=== PATIENT | female | born 1990 | race Caucasian/White ===

== ENCOUNTER 2018-05-19 18:32 | Outpatient (REF) | payer OTHER, SELFPAY ==
[2018-05-23 14:40] LABS: Chlamydia Result Negative; GC Result Negative; Specimen Description VAGINAL
== END 2018-05-19 18:33 ==
LOC: LBN 18:32
PROVIDERS: PCP Nurse Practitioner Family; Visit Provider Nurse Practitioner Family
DX: N92.0 Excessive and frequent menstruation with regular cycle (principal); N94.6 Dysmenorrhea, unspecified
CPT/HCPCS: 87491; 87591; 87480; 87510; 87660

== ENCOUNTER 2018-06-02 01:12 | Outpatient (CLI) | payer OTHER, SELFPAY ==
--- NOTE | 2018-06-02 13:50 | DI.REPORT_ITS ---
SYMPTOMS/DIAGNOSIS: DYSMENORRHEA, MENORRHAGIA, N94.6, N92.0, COPPER IUD X 2 YEARS PELVIC ULTRASOUND: Pelvic ultrasound was performed transabdominally and transvaginally. Please see the accompanying data sheet for measurements of the pelvic structures. There is an IUD in the endometrial cavity. The myometrium is unremarkable in appearance. The ovaries have a normal follicular appearance. No free fluid identified in the cul-de-sac. Limited scanning of the kidneys is unremarkable. CONCLUSION: Negative pelvic ultrasound with IUD in place.
== END 2018-06-02 01:13 ==
PROVIDERS: PCP Nurse Practitioner Family; Visit Provider Nurse Practitioner Family
DX: N92.0 Excessive and frequent menstruation with regular cycle (principal); N94.6 Dysmenorrhea, unspecified; Z30.431 Encounter for routine checking of intrauterine contraceptive device
CPT/HCPCS: 76830; 76856

== ENCOUNTER 2024-05-21 23:05 | Emergency (ER) | payer OTHER, SELFPAY ==
[2024-05-21 23:09] VITALS: BP 127/93; PULSE 86; RESP 18; TEMP 37; O2SAT 98
--- NOTE | 2024-05-21 23:15 | RT.EKG_ITS ---
APPROVED REPORT Exam: Resting ECG Reason for Exam: syncope Patient Location: E HR:76 bpm ECG Measurements Heart Rate 76 AXIS VA 169 P 40 QRSd 97 QRS -21 QT 337 T 1 QTc 379 Conclusion Sinus rhythm...normal P axis, V-rate 60- 99 Low voltage, precordial leads...precordial leads <1.0mV Consider anterior infarct...Q >30mS in V2-V5 Normal [place] Poor R wave progression across the precordium. Nonspecific ST-T changes
--- NOTE | 2024-05-21 23:18 | ED.GENADUL_ITS ---
Discharge Plan Disposition Patient Disposition: Home Condition: Good Discharge Details Clinical Impression: UTI (urinary tract infection), Constipation, Syncope Primary Care Provider: Melida Olivas ED Provider: Jim Flores Foster Meds and New Rx's Prescriptions: Continued bupropion HCl 300 mg tablet extended release 24 hr 300 mg PO QAM cyanocobalamin (vitamin B-12) 1,000 mcg/15 mL liquid 1,000 mcg PO DAILY medroxyprogesterone [Depo-Provera] 150 mg/mL suspension 150 mg IM [id number] naproxen 500 mg tablet 500 mg PO DAILY PRN testosterone cypionate 200 mg/mL oil 100 mg IM QWEEK (DME) BD Luer-Selene Syringe 1 mL syringe MISCELLANEOUS Patient Comments: USE TO DRAW UP AND ADMINISTER MEDICATION EVERY 7 DAYS (DME) needle (disp) 23 gauge [Hypodermic [place]] 23 gauge x 1 needle MISCELLANEOUS Patient Comments: USE TO ADMINISTER MEDICATION EVERY 7 DAYS (DME) needle (disp) 18 G [BD Regular Bevel [place]] 18 gauge x 1 needle MISCELLANEOUS Patient Comments: USE 1 EVERY 7 DAYS TO DRAW UP MEDICATION cyanocobalamin (vitamin B-12) 1,000 mcg tablet 1,000 mcg PO DAILY Patient Comments: TAKE TWO TABLETS BY MOUTH EVERY MORNING propranolol 10 mg tablet 10 mg PO BID Patient Comments: TAKE 1 TABLET BY MOUTH AT BEDTIME FOR 3 NIGHTS, THEN INCREASE TO 1 TABLET TWO TIMES A DAY desvenlafaxine succinate [Pristiq] 50 mg tablet extended release 24 hr 50 mg PO DAILY lisdexamfetamine [Vyvanse] 20 mg capsule 20 mg PO DAILY lisdexamfetamine [Vyvanse] 20 mg capsule 20 mg PO DAILY norethindrone acetate 5 mg tablet 5 mg PO DAILY Discharge Instructions Instructions: Constipation, Adult ED, Urinary Tract Infection, Adult ED, Fainting, Adult ED Additional Instructions: You were seen in the ED for left lower abdominal pain. You had a syncopal event in triage likely attributable to a vagal reaction. Your laboratory studies overall are reassuring, though I would increase hydration as your kidney function was a little high. Your urine shows evidence of infection so you were given an IV dose of antibiotic here. You may discontinue the metronidazole previously prescribed for possible diverticulitis. You may continue the ciprofloxacin as this will treat the urinary tract infection. You do have evidence of constipation on CT scan but it otherwise looks reassuring. Increase fluid and fiber intake and use MiraLAX until you begin to have soft daily bowel movements. Follow-up with your primary care physician this week. Return to the ED for any spiking fever, chest pain, shortness of breath, worsening abdominal pain, persistent vomiting, other concerns. HPI General Mode of arrival: ambulatory . Date/Time Provider Initiated Documentation: 05/21/24 23:14 . Limitations to Documentation: no limitations . Information obtained by: patient . HPI Narrative: Patient presents to ED with sharp stabbing lower left abdominal pain. Patient has history of chronic cramping lower abdominal pain. Today had acute onset of different pain described as sharp and stabbing. Was seen at an urgent care and started on antibiotic for possible diverticulitis. Patient denies any fever, nausea, vomiting, diarrhea, urinary symptoms. Pain worse this evening and seems to be across the lower abdomen at this point. While in triage became pale/weinberg , diaphoretic and syncopized. Patient has recovered and is awake and alert now. Has never passed out previously. Has been having some episodes of lightheadedness throughout the late afternoon evening after the pain started. Patient is transitioning from female to male. Is planning on complete hysterectomy but that has not occurred as of this time. Denies any back pain. Denies any chest pain or shortness of breath. Related Data Home Medications ?Medication ?Instructions ?Recorded ?Confirmed bupropion HCl 300 mg 24 hr tablet, 300 mg PO QAM 11/01/23 05/22/24 extended release cyanocobalamin (vitamin B-12) 1,000 mcg PO DAILY 11/01/23 05/22/24 1,000 mcg/15 mL oral liquid medroxyprogesterone 150 mg/mL 150 mg IM [id number] 11/01/23 05/22/24 intramuscular suspension (Depo-Provera) naproxen 500 mg tablet 500 mg PO DAILY PRN 11/01/23 05/22/24 testosterone cypionate 200 mg/mL 100 mg IM QWEEK 11/01/23 05/22/24 intramuscular oil cyanocobalamin (vitamin B-12) 1,000 mcg PO DAILY 05/22/24 05/22/24 1,000 mcg tablet desvenlafaxine succinate 50 mg 50 mg PO DAILY 05/22/24 05/22/24 tablet,extended release 24 hr (Pristiq) lisdexamfetamine 20 mg capsule 20 mg PO DAILY 05/22/24 05/22/24 (Vyvanse) lisdexamfetamine 20 mg capsule 20 mg PO DAILY 05/22/24 05/22/24 (Vyvanse) needle (disp) 18 G 18 gauge x 1 05/22/24 05/22/24 (BD Regular Bevel [place]) needle (disp) 23 gauge 23 gauge x 05/22/24 05/22/24 1 (Hypodermic [place]) norethindrone acetate 5 mg tablet 5 mg PO DAILY 05/22/24 05/22/24 propranolol 10 mg tablet 10 mg PO BID 05/22/24 05/22/24 syringe (disposable) 1 mL (BD 05/22/24 05/22/24 Luer-Selene Syringe) Allergies Allergy/AdvReac Type Severity Reaction Status Date / Time No Known Allergies Allergy Unverified 11/30/23 09:09 General Stated Complaint: Abd Prob KONG: 3 Review of Systems Narrative: Per HPI Exam Narrative Exam Narrative: Const: Obese female in NAD. VS per triage. HEENT: NC/AT. Normal facial exam. Neck: Supple. Trachea midline. Lungs: Normal respiratory effort. Lungs are clear. Cor: RRR without murmur. Good radial pulses. GI: Soft/ND. Tender in the LLQ with voluntary guarding, some tenderness across lower abdomen to RLQ. Pelvic: Deferred. Neuro: A+O x 3. Normal speech, mentation, gait. Cranial nerves II - XII grossly intact. No gross motor or sensory deficit. Ext: No C/C/E. Course Vital Signs Vital signs: Vital Signs Temperature 98.6 F 05/21/24 23:09 Pulse 86 05/21/24 23:09 Respiratory Rate 18 05/21/24 23:09 Blood Pressure 127/93 H 05/21/24 23:09 Pulse Oximetry 98 05/21/24 23:09 Temperature 98.6 F 05/21/24 23:09 Temperature Source Skin 05/21/24 23:09 Pulse 86 05/21/24 23:09 Respiratory Rate 18 05/21/24 23:09 Respiratory Effort Normal 05/21/24 23:13 Blood Pressure 127/93 H 05/21/24 23:09 Blood Pressure Position Sitting 05/21/24 23:09 Pulse Oximetry 98 05/21/24 23:09 Oxygen Delivery Method Room Air 05/21/24 23:09 Oxygen Flow Rate 0 05/21/24 23:09 Pain Level 8 05/21/24 23:09 Medical Decision Making Patient presenting to ED with sudden onset of left-sided low abdominal pain described as sharp and stabbing in nature. This is different than the chronic cramping pain patient has on a fairly regular basis. Was placed on antibiotic for possible diverticulitis and did take dicyclomine. Pain worse this evening. Had syncopal event in triage. May be vagal but has never had syncope before. Given sudden onset of pain which is now worse and more diffuse possible ruptured hemorrhagic ovarian cyst considered. Patient denies . IV established and laboratory studies obtained. EKG in triage after syncopal event shows sinus rhythm with poor R wave progression nonspecific ST changes. IV acetaminophen ordered for pain. CT scan of abdomen and pelvis to be done. 03:30 - Patient doing better at this time. Looks comfortable. Labs with normal hemoglobin and hematocrit. Initial sodium reported as 126 but with normal chloride and negative anion gap. Repeat sodium normal at 137. BUN is normal. Creatinine is elevated 1.6. Liver function and lipase normal. CT scan unremarkable except for large amount of stool in the colon. No evidence of free fluid in the pelvis, hydronephrosis, ovarian cysts or kidney stones. Urinalysis is infected with large amount of white cells and bacteria present on micro. Not really complaining of back pain but presumed pyelonephritis. Will dose with IV ceftriaxone. Will discontinue the metronidazole but continue the ciprofloxacin previously prescribed today. Recommend increase fluids to hydrate. MiraLAX once or twice a day until good bowel movements. Acetaminophen or ibuprofen as needed for pain. Follow-up with primary care later this week for recheck. Return precautions provided. Lab Data Lab results reviewed: Yes I reviewed the patient's lab results. Lab results narrative: see [facility] ECG Data Attestation: I personally reviewed and interpreted this ECG (s) as follows: Prior ECG tracings: not available for review Interpretation: see EKG/[facility]M [facility] All Active Problems (Updated 05/22/24 @ 03:38 by Jim Flores MD) Syncope (Chronic) Constipation (Acute) UTI (urinary tract infection) (Acute) Transgender person on hormone therapy (Acute) 09/2022. [facility], Menses, irregular (Acute) Fibroid uterus (Acute) Obesity (Acute 10/24/13) Generalized anxiety disorder (Acute 05/19/18) Dysmenorrhea (Acute 05/19/18) Binge eating disorder (Acute 05/19/18) Medical History Asthma (10/24/13) Anxiety and depression (03/16/18) 05/03/18 DINA-7 SCORE=17 ADHD (attention deficit hyperactivity disorder), combined type (05/19/18) Surgical History Tonsillectomy and adenoidectomy (~1995) Tooth extraction 12/28-[employer] Family History Mother Depression Mental disorder learning disability Father No problems noted. Brother No problems noted. Brother Depression Asthma Brother Depression Grandfather Non-Hodgkin's lymphoma Depression Hyperlipidemia Grandfather Mental disorder OCD, social anxiety Neoplasm COLON Grandmother Depression Asthma Grandmother No problems noted. Son No problems noted. Maternal Uncle Mental disorder maternal uncle ADHD Social History Smoking/Tobacco Use Status: Former Tobacco Use Smoking risk assessment performed?: Yes Alcohol Intake: current Alcohol Intake frequency: a few times a month Drug use: Never Substance use type: marijuana Household members: other Details: Partner [place] and 8yo son Adriel. Number of Children: 1 Education Level: college current occupation: global marketing coordinator Pets and animals: Yes Pets and animals: cat(s), dog(s) and other Details: 4 SALALANDERS, BUNNY, CHICK[place] Current gender identity: trans [id number] Duration: 15-30 minutes/day Frequency: 1-2 times per week Special mayo needs: No Seatbelt use: always Female Reproductive History Menstrual Age of Menarche: 10 Duration of menses: 3-5 days History Past Pregnancies Del. Date GA/Weeks # Preg Succ Route Wgt Sex Labor Lgth Anesth esia Location [facility] 01/24/16 38 No Yes vaginal 4053.982 g [facility] Delivery Date: 01/24/16 Last Updated by: Gricelda Ryder MD (adrian)
[2024-05-22] VITALS (40 sets, daily range): BP systolic 92–134; BP diastolic 43–68; PULSE 58–81; RESP 13–27; O2SAT 92–97
--- NOTE | 2024-05-22 | DI.CT_ITS ---
Exam(s) CT ABDOMEN PELVIS W EXAM: CT ABDOMEN PELVIS W CLINICAL HISTORY: llq pain, syncope. TECHNIQUE: Imaging Protocol: Axial computed tomography images with coronal and sagittal reformatted images were created and reviewed CONTRAST MATERIAL: Intravenous: Omnipaque-350 100cc Oral: None COMPARISON: No exams were available for comparison FINDINGS: VISUALIZED LUNG BASES: No nodules nor pleural effusions evident. ABDOMEN: There is no ascites. LIVER: There are no focal hepatic lesions evident. No dilated intrahepatic ducts. GALLBLADDER/BILIARY: No obvious gallbladder pathology. CBD is not dilated. PANCREAS: No evidence of pancreatic mass nor dilatation of the pancreatic duct. SPLEEN: Spleen is not enlarged. No obvious intrasplenic lesions. Splenic and portal veins are paten t. ADRENALS: There are no significant adrenal masses. KIDNEYS:No cysts evident. No solid renal masses. No calculi nor hydronephrosis.. ABDOMINAL AORTA: Abdominal aorta is not enlarged. LYMPH NODES:There is no retroperitoneal nor paraaortic adenopathy. ABDOMINAL WALL: There is a fat only containing midline umbilical hernia. GI: There is no evidence of bowel obstruction, free air, nor abscess. There is abundant fecal material throughout the colon. No significant diverticular disease evident. There is no fecalization of small bowel loops. Terminal ileum appears unremarkable. PELVIS: GI: No evidence of appendicitis.No evidence of sigmoid diverticulitis. LYMPH NODES: There is no intrapelvic nor inguinal adenopathy. REPRODUCTIVE: Age-appropriate URINARY BLADDER: No calculi nor obvious masses evident OSSEOUS: No fractures and no significant osseous lesions. IMPRESSION: 1. There is abundant fecal material noted throughout the colon consistent with probable constipation. There is no fecalization of small bowel loops. No evidence of bowel obstruction, free air, nor abs cess 2. Fat only containing small umbilical hernia noted. RADIATION DOSE DELIVERED: Total DLP DATA REPOSITORY: All CT scans at this facility are submitted to the National Radiology Data Registry (NRDR) Dose Index Registry (DIR) with the [employer] (ACR). RADIATION OPTIMIZATION: All CT scans at this facility use at least one of these dose optimization te chniques: automated exposure control; mA and/or kV adjustment per patient size (includes targeted exa ms where dose is matched to clinical indication); or iterative reconstruction.
[2024-05-22 00:54] LABS: Abs Immature Grans 0.04 10^3/uL (0.0-0.06); Absolute Basophil Count 0.12 10^3/uL (0.0-0.2); Absolute Eosinophil Count 0.17 10^3/uL (0.0-0.7); Absolute Lymphocyte Count 3.43 10^3/uL (1.2-3.4); Absolute Monocyte Count 0.78 10^3/uL (0.1-0.8); Absolute Neutrophil Count 6.28 10^3/uL (1.2-6.7); Basophils % 1.1 %; Eosinophils % 1.6 %; HCT 41.4 % (36.0-46.0); Immature Grans % 0.4 %; Lymphocytes % 31.7 %; MCH 24.9 pg (27.0-33.0); MCHC 31.4 % (32.0-36.0); MCV 79 fL (80-95); MPV 9.7 fL (8.0-11.0); Monocytes % 7.2 %; Platelet Count 312 10^3/uL (130-400); RBC 5.22 10^6/uL (3.93-5.22); RDW 14.8 % (11.7-14.6); RDW-SD 42.8 fL; WBC 10.82 10^3/uL (4.4-10.8)
[2024-05-22] MEDS: ACETAMINOPHEN 1,000 MG/100 ML BTL 400 MG IVPB (01:01)
[2024-05-22] MEDS: Lactated Ringers 1,000 ML 1000 ML IV (01:03)
[2024-05-22 01:14] LABS: ALT 15 U/L (14-59); AST 12 U/L (15-37); Albumin 3.8 g/dL (3.4-5.0); Alkaline Phosphatase 118 U/L (46-116); Anion Gap -1.5 mmol/L (3-11); BUN 16 mg/dL (7-18); Bilirubin, Total 0.36 mg/dL (0.2-1.0); CO2 22.5 mmol/L (21.0-32.0); CREATININE 1.6 mg/dL (0.55-1.02); Calcium 9.1 mg/dL (8.5-10.1); Chloride 105 mmol/L (98-107); Estimated GFR 43.13 (mL/min/1.73m2); Glucose 110 mg/dL (74-106); Lipase 21 U/L (16-77); Potassium 3.8 mmol/L (3.5-5.1); Sodium 126 mmol/L (136-145)
[2024-05-22 01:26] LABS: HCG Qual (Serum) Negative
[2024-05-22] MEDS: Normal Saline - Diluent 50 ML VIAL IJ (01:49)
[2024-05-22] MEDS: Omnipaque 350 MG/ML 100 ML BTL IJ (01:50)
[2024-05-22 02:14] LABS: BUN 15 mg/dL (7-18); CREATININE 1.6 mg/dL (0.55-1.02); Calcium 8.6 mg/dL (8.5-10.1); Chloride 104 mmol/L (98-107); Estimated GFR 43.13 (mL/min/1.73m2); Glucose 103 mg/dL (74-106); Sodium 137 mmol/L (136-145)
[2024-05-22 03:09] LABS: Bilirubin Negative (Negative); Blood Trace-intact (Negative); Clarity Sl Cloudy (Clear); Glucose Negative (Negative); Ketones Negative (Negative); Leukocyte Esterase Moderate (Negative); Nitrite Negative (Negative); Specific Gravity 1.015 (1.005-1.025); Urobilinogen 0.2 mg/dL (Up to 0.2); pH 5.5 (5-8)
--- NOTE | 2024-05-22 03:16 | DI.[facility]_ITS ---
PROCEDURE INFORMATION: Exam: CT Abdomen And Pelvis With Contrast Exam date and time: 05/22/2024 1:37 AM Age: 33 years old Clinical indication: Other: Llq pain, syncope TECHNIQUE: Imaging protocol: Computed tomography of the abdomen and pelvis with contrast. Contrast material: OMNI 350; Contrast volume: 100 ml; Contrast route: INTRAVENOUS (IV); COMPARISON: US PELVIS TRANSVAGINAL 15/10/2023 14:03 FINDINGS: Liver: Normal. No mass. Gallbladder and biliary ducts: Normal. No calcified stones. No ductal dilation. Pancreas: Normal. No ductal dilation. Spleen: Normal. No splenomegaly. Adrenal glands: Normal. No mass. Kidneys and ureters: Normal. No hydronephrosis. Stomach and bowel: No evidence of bowel obstruction. Large amount of stool in the colon. No mucosal thickening. Appendix: Nonvisualized appendix. No evidence of appendicitis. Intraperitoneal space: No free fluid or free air. Vasculature: Unremarkable. No abdominal aortic aneurysm. Lymph nodes: Unremarkable. No enlarged lymph nodes. Urinary bladder: Unremarkable as visualized. Reproductive: Unremarkable as visualized. Bones/joints: No acute fracture. Soft tissues: Small umbilical hernia containing fat. IMPRESSION: Large amount of stool in the colon suggestive of constipation. Dictated and Authenticated by: Chris Henderson MD. Ordering:BLANQUITA Fernandez MD
[2024-05-22 03:19] LABS: Epithelial Cells Few HPF (Negative); WBC >50 HPF (0-5)
[2024-05-22 03:20] LABS: Bacteria Moderate HPF (Negative); C & S Indicated? Yes; Casts Negative LPF (Negative); Crystals Negative HPF (Negative); Mucus Negative (Negative)
[2024-05-22] MEDS: cefTRIAXone 1 GM/50 ML BAG IVPB (03:42)
== END 2024-05-22 04:18 | disposition home or self-care (01) ==
LOC: ER 05-22 03:38 → RED 05-22 04:18
PROVIDERS: Emergency Provider Emergency Medicine; PCP Nurse Practitioner Family
DX: N39.0 Urinary tract infection, site not specified (principal); K59.00 Constipation, unspecified; R55 Syncope and collapse; F64.0 Transsexualism; Z87.891 Personal history of nicotine dependence
CPT/HCPCS: 36415; 80048; 80053; 82962; 83690; 86850; 86900; 86901; 93005; 96365; 96367; 96375; 99285; 74177; 81003; 81015; 84703; 85025; 87086; 93010; 99284; J0131; J0696; J3490

== ENCOUNTER 2024-10-09 15:16 | Outpatient (CLI) | payer OTHER, SELFPAY ==
[2024-10-09 16:25] LABS: TSH (W/Ref FT4) 3.18 uIU/mL (0.36-3.74); Vitamin D 25 Total 15.7 ng/mL (30-100)
== END 2024-10-09 15:17 | disposition home or self-care (01) ==
LOC: LBO 15:26
PROVIDERS: PCP Nurse Practitioner Family; Visit Provider Nurse Practitioner Family
DX: F33.2 Major depressive disorder, recurrent severe without psychotic features (principal)
CPT/HCPCS: 36415; 82306; 84443

== ENCOUNTER 2024-12-28 22:32 | Outpatient (REF) | payer OTHER, SELFPAY ==
[2024-12-28 20:04] LABS: *AMPHETAMINES SCREEN URINE Positive (Negative); *BARBITURATES SCREEN URINE Negative (Negative); *BENZODIAZEPINES SCREEN URINE Negative (Negative); Cannabinoids THC Positive (Negative); Cocaine Screen,Urine Negative (Negative); METHADONE URINE SCREEN Negative (Negative); OPIATES URINE SCREEN Negative (Negative); Tricyclic Antidepressants Negative (Negative)
== END 2024-12-28 22:33 | disposition home or self-care (01) ==
LOC: LBN 22:32
PROVIDERS: PCP Nurse Practitioner Family; Visit Provider Nurse Practitioner Family
DX: Z51.81 Encounter for therapeutic drug level monitoring (principal)
CPT/HCPCS: 80307

== ENCOUNTER 2025-02-05 22:00 | Emergency (ER) | payer OTHER, SELFPAY ==
[2025-02-05 22:07] VITALS: BP 122/89; PULSE 105; RESP 18; TEMP 36.9; O2SAT 98
[2025-02-05 22:12] VITALS: BP 122/89; PULSE 105; RESP 18; TEMP 36.9; O2SAT 98
[2025-02-05 22:39] VITALS: BP 103/69; PULSE 77; RESP 18; O2SAT 98
[2025-02-05 23:50] LABS: Abs Immature Grans 0.03 10^3/uL (0.0-0.06); Absolute Basophil Count 0.12 10^3/uL (0.0-0.2); Absolute Eosinophil Count 0.25 10^3/uL (0.0-0.7); Absolute Lymphocyte Count 3.15 10^3/uL (1.2-3.4); Absolute Neutrophil Count 6.52 10^3/uL (1.2-6.7); Basophils % 1.1 %; Eosinophils % 2.3 %; HCT 43.9 % (36.0-46.0); Immature Grans % 0.3 %; Lymphocytes % 28.7 %; MCH 27.3 pg (27.0-33.0); MCHC 31.9 % (32.0-36.0); MCV 86 fL (80-95); Monocytes % 8.2 %; Neutrophils % 59.4 %; RBC 5.13 10^6/uL (3.93-5.22); RDW 13.8 % (11.7-14.6); RDW-SD 42.9 fL; WBC 10.97 10^3/uL (4.4-10.8)
[2025-02-05] MEDS: ACETAMINOPHEN 1,000 MG/100 ML BAG 400 MG IVPB (23:54)
[2025-02-05] MEDS: Normal Saline 1,000 ML 1000 ML IV (23:55)
--- NOTE | 2025-02-06 00:10 | DI.CT_ITS ---
Exam(s) CT ABDOMEN PELVIS W EXAM: CT ABDOMEN PELVIS W CLINICAL HISTORY: lower abdominal pain, right side, recent hyster TECHNIQUE: Imaging Protocol: Axial computed tomography images with coronal and sagittal reformatted images were created and reviewed. CONTRAST MATERIAL: Intravenous: Omnipaque 350 Contrast volume:100 mL Oral: No COMPARISON: CT CT ABDOMEN PELVIS W from 05/22/2024 FINDINGS: ABDOMEN: Lung Bases: No acute abnormality. Liver: Normal density. No measurable mass. Portal, Superior Mesenteric, and Splenic Veins: Unremarkable. Gallbladder and Biliary Tract: No radiodense calculus or dilation. Pancreas: Normal density, no abnormal calcifications or inflammatory process. Spleen: Normal. Adrenals: No masses seen. Kidneys: Normal size, contour and axis. No radiodense stones or obstructive uropathy. No masses seen. Abdominal Aorta: Abdominal portion non-dilated. Bowel: No obstruction or bowel wall thickening. Appendix is unremarkable. Peritoneal Cavity: No ascites, collection or mesenteric inflammatory response. No free air. Lymph Nodes: Within normal limits. Bones: Within normal limits for the patient's age. Soft Tissues: There is a small fat containing umbilical hernia. PELVIS: Bladder: Symmetric distention, no gross wall thickening. Reproductive Organs: Status post hysterectomy. Lymph Nodes: Within normal limits. Bones: Within normal limits for the patient's age. IMPRESSION: 1. No acute abdominal or pelvic process. 2. Status post hysterectomy. 3. No evidence of appendicitis. 4. No evidence of pneumoperitoneum or abdominal or pelvic abscess. 5. The preliminary [facility] report was reviewed. RADIATION DOSE DELIVERED: 1,126.21mGy.cm Total DLP DATA REPOSITORY: All CT scans at this facility are submitted to the National Radiology Data Registry (NRDR) Dose Index Registry (DIR) with the [employer] (ACR). RADIATION OPTIMIZATION: All CT scans at this facility use at least one of these dose optimization te chniques: automated exposure control; mA and/or kV adjustment per patient size (includes targeted exa ms where dose is matched to clinical indication); or iterative reconstruction.
[2025-02-06 00:21] LABS: Diff Comment PLT Morph Reviewed; Platelet Count 207 10^3/uL (130-400); RBC Morphology Normal
[2025-02-06 00:23] LABS: Anion Gap 6.7 mmol/L (3-11); BUN 15 mg/dL (7-18); CO2 27.3 mmol/L (21.0-32.0); CREATININE 1.3 mg/dL (0.55-1.02); Calcium 8.9 mg/dL (8.5-10.1); Chloride 106 mmol/L (98-107); Glucose 107 mg/dL (74-106); Sodium 140 mmol/L (136-145)
[2025-02-06] MEDS: Omnipaque 350 MG/ML 100 ML BTL IJ (00:49)
[2025-02-06] MEDS: Normal Saline - Diluent 50 ML VIAL IJ (00:49)
--- NOTE | 2025-02-06 01:04 | W.ED.GENAD ---
Discharge Plan Disposition Patient Disposition: Home Condition: Improving Discharge Details Clinical Impression: UTI (urinary tract infection) Primary Care Provider: Melida Olivas ED Provider: Reece Narvaez Home Meds and New Rx's Prescriptions: New ciprofloxacin HCl [Cipro] 250 mg tablet 250 mg PO BID Qty: 10 0RF No Action bupropion HCl 300 mg tablet extended release 24 hr 300 mg PO QAM naproxen 500 mg tablet 500 mg PO DAILY PRN albuterol sulfate 90 mcg/actuation HFA aerosol inhaler 2 puff inhalation Q6H PRN psyllium husk [Metamucil] 0.4 gram capsule 0.4 g PO DAILY aripiprazole 5 mg tablet 10 mg PO DAILY testosterone cypionate 200 mg/mL oil 80 mg IM QWEEK (DME) BD Luer-Selene Syringe 1 mL syringe MISCELLANEOUS Patient Comments: USE TO DRAW UP AND ADMINISTER MEDICATION EVERY 7 DAYS (DME) needle (disp) 23 gauge [Hypodermic [place]] 23 gauge x 1 needle MISCELLANEOUS Patient Comments: USE TO ADMINISTER MEDICATION EVERY 7 DAYS (DME) needle (disp) 18 G [BD Regular Bevel [place]] 18 gauge x 1 needle MISCELLANEOUS Patient Comments: USE 1 EVERY 7 DAYS TO DRAW UP MEDICATION cyanocobalamin (vitamin B-12) 1,000 mcg tablet 1,000 mcg PO DAILY Patient Comments: TAKE TWO TABLETS BY MOUTH EVERY MORNING propranolol 10 mg tablet 10 mg PO BID Patient Comments: TAKE 1 TABLET BY MOUTH AT BEDTIME FOR 3 NIGHTS, THEN INCREASE TO 1 TABLET TWO TIMES A DAY lisdexamfetamine [Vyvanse] 20 mg capsule 20 mg PO DAILY norethindrone acetate 5 mg tablet 5 mg PO DAILY lisdexamfetamine [Vyvanse] 20 mg capsule 10 mg PO .PM Discharge Instructions Instructions: Urinary Tract Infection, Adult ED Additional Instructions: Take 1 ciprofloxacin tablet every 12 hours for the next 5 days. This will treat the underlying urinary tract infection causing your discomfort. Continue to take the MiraLAX to help resolve your constipation. Follow-up with your regular primary care doctor for reevaluation further management, especially if symptoms not improving with this care plan. You can always return to the ER for any new concerns or sudden changes in your health which you feel require emergency medical attention. Discharge Data Discharge Physician: Reece Narvaez [facility] General Date/Time Provider Initiated Documentation: 02/05/25 22:17. HPI Narrative: The patient is a 34-year-old biologic female, with a recent hysterectomy, but the patient does not think they had an oophorectomy, who presents to the emergency department this evening complaining of lower abdominal discomfort. Initially the patient complained of some constipation in triage after having the hysterectomy surgery in December, but when I went into the room the patient tells me that they are currently taking MiraLAX and they are having regular bowel movements. The last bowel movement was yesterday and was copious and soft. The patient denies any urinary symptoms. The patient continues to have a vaginal orifice and denies having any bleeding, discharge, or odor. The patient denies having any fevers or chills. The patient continues to have an appendix. The patient denies having any bulges or abnormal contours in the lower abdominal wall or genital pelvic region. Related Data Home Medications ?Medication ?Instructions ?Recorded ?Confirmed bupropion HCl 300 mg 24 hr tablet, 300 mg PO QAM 11/01/23 02/05/25 extended release naproxen 500 mg tablet 500 mg PO DAILY PRN 11/01/23 02/05/25 cyanocobalamin (vitamin B-12) 1,000 mcg PO DAILY 05/22/24 02/05/25 1,000 mcg tablet lisdexamfetamine 20 mg capsule 20 mg PO DAILY 05/22/24 02/05/25 (Vyvanse) needle (disp) 18 G 18 gauge x 1 05/22/24 02/05/25 (BD Regular Bevel [place]) needle (disp) 23 gauge 23 gauge x 05/22/24 02/05/25 1 (Hypodermic [place]) norethindrone acetate 5 mg tablet 5 mg PO DAILY 05/22/24 02/05/25 propranolol 10 mg tablet 10 mg PO BID 05/22/24 02/05/25 syringe (disposable) 1 mL (BD 05/22/24 02/05/25 Luer-Selene Syringe) albuterol sulfate 90 mcg/actuation 2 puff inhalation Q6H PRN 05/30/24 02/05/25 aerosol inhaler psyllium husk 0.4 gram capsule 0.4 g PO DAILY 05/30/24 02/05/25 (Metamucil) aripiprazole 5 mg tablet 10 mg PO DAILY 06/05/24 02/05/25 lisdexamfetamine 20 mg capsule 10 mg PO .PM 06/05/24 02/05/25 (Vyvanse) testosterone cypionate 200 mg/mL 80 mg IM QWEEK 06/05/24 02/05/25 intramuscular oil ciprofloxacin HCl 250 mg tablet 250 mg PO BID #10 tabs 02/06/25 (Cipro) Previous Rx's ?Medication ?Instructions ?Recorded ciprofloxacin HCl 250 mg tablet 250 mg PO BID #10 tabs 02/06/25 (Cipro) Allergies Allergy/AdvReac Type Severity Reaction Status Date / Time No Known Allergies Allergy Unverified 02/05/25 22:10 General Stated Complaint: Abd Prob KONG: 3 Exam Const General: cooperative, healthy appearing and no acute distress Resp Effort & Inspection: normal respiratory effort and able to speak in complete sentences Auscultation: clear to auscultation bilaterally Cardio Rate: regular rate Rhythm: regular rhythm Heart Sounds: S1 normal and S2 normal GI Inspection: normal to inspection Palpation: soft Percussion: normal to percussion Auscultation: normal bowel sounds Skin General skin exam: no rashes or lesions noted, elasticity normal and turgor normal Neuro General: patient alert, patient awake, patient oriented x3, moves all extremities, no focal motor deficits and CN's II-XI intact bilaterally Extrem General: full ROM, no clubbing, no cyanosis and no edema Course Vital Signs Vital signs: Vital Signs Temperature 36.9 C 02/05/25 22:07 Pulse 105 H 02/05/25 22:07 Respiratory Rate 18 02/05/25 22:07 Blood Pressure 122/89 02/05/25 22:07 Pulse Oximetry 98 02/05/25 22:07 Temperature 36.9 C 02/05/25 22:12 Pulse 77 02/05/25 22:39 Respiratory Rate 18 02/05/25 22:39 Blood Pressure 103/69 02/05/25 22:39 Pulse Oximetry 98 02/05/25 22:39 Pain Level 5 02/05/25 22:12 Lab/Test Results Lab/Test Results: Laboratory Tests Range/Units 02/05/25 02/06/25 23:17 00:05 WBC (4.4-10.8) 10^3/uL 10.97 H RBC (3.93-5.22) 10^6/uL 5.13 Hgb (11.2-15.7) g/dL 14.0 Hct (36.0-46.0) % 43.9 MCV (80-95) fL 86 MCH (27.0-33.0) pg 27.3 MCHC (32.0-36.0) % 31.9 L RDW (11.7-14.6) % 13.8 Plt Count (130-400) 10^3/uL 207 MPV (8.0-11.0) fL Immature Gran % % 0.3 Neutrophils % % 59.4 Lymphocytes % % 28.7 Monocytes % % 8.2 Eosinophils % % 2.3 Basophils % % 1.1 Nucleated RBC % (0.0-0.3) % 0.0 Absolute Neutrophils (1.2-6.7) 10^3/uL 6.52 Absolute Lymphocytes (1.2-3.4) 10^3/uL 3.15 Absolute Monocytes (0.1-0.8) 10^3/uL 0.90 H Absolute Eosinophils (0.0-0.7) 10^3/uL 0.25 Absolute Basophils (0.0-0.2) 10^3/uL 0.12 RBC Morphology Normal Sodium Cancelled 140 Potassium Cancelled 4.0 Chloride Cancelled 106 Carbon Dioxide Cancelled 27.3 Anion Gap Cancelled 6.7 BUN Cancelled 15 Creatinine Cancelled 1.3 H Est GFR (CKD-EPI 2020) Cancelled 55.00 Glucose Cancelled 107 H Calcium Cancelled 8.9 Medical Decision Making The patient was seen and examined. They are in no distress and have normal vital signs here in the emergency room. There is a slightly elevated creatinine level and a slightly elevated white blood count, but no significant laboratory abnormalities. The patient was not initially able to provide a urine for testing. The plan will be to obtain a contrast-enhanced CT scan of the abdomen and pelvis to evaluate and exclude appendicitis, ovarian cystic disease, occult hernias, or other postoperative abnormalities associated with the relatively recent hysterectomy. The abdominal examination is negative for peritonitis, and I do not think this represents some form of perforation or significant inflammatory process in the abdomen or pelvis. Disposition will depend on discovery of pathology. 0200 - The urine returned as positive with a likely urinary tract infection. The patient be treated with oral ciprofloxacin for 5 days for resolution of symptoms. Discharge primary care follow-up. Quality:SDOH Health Related Social Needs: No Data to Display PFSH All Active Problems (Updated 02/06/25 @ 02:02 by Reece Narvaez MD) UTI (urinary tract infection) (Acute) LLQ abdominal pain (Acute) Transgender person on hormone therapy (Acute) 09/2022. [facility], Menses, irregular (Acute) Fibroid uterus (Acute) Obesity (Acute 10/24/13) Generalized anxiety disorder (Acute 05/19/18) Dysmenorrhea (Acute 05/19/18) Binge eating disorder (Acute 05/19/18) Medical History Asthma (10/24/13) Anxiety and depression (03/16/18) 05/03/18 DINA-7 SCORE=17 ADHD (attention deficit hyperactivity disorder), combined type (05/19/18) Surgical History Tonsillectomy and adenoidectomy (~1995) Tooth extraction 12/28-[employer] Family History Mother Depression Mental disorder learning disability Father No problems noted. Brother No problems noted. Brother Depression Asthma Brother Depression Grandfather Non-Hodgkin's lymphoma Depression Hyperlipidemia Grandfather Mental disorder OCD, social anxiety Neoplasm COLON Grandmother Depression Asthma Grandmother No problems noted. Son No problems noted. Maternal Uncle Mental disorder maternal uncle ADHD Social History Smoking/Tobacco Use Status: Former Tobacco Use Smoking risk assessment performed?: Yes Alcohol Intake: former Drug use: Never Substance use type: marijuana Household members: other Details: Partner Tickfaw and 8yo son Adriel. Number of Children: 1 Education Level: college current occupation: safety coordinator Pets and animals: Yes Pets and animals: cat(s), dog(s) and other Details: 4 SALALANDERS, BUNNY, CHICKENS Current gender identity: trans [id number] Duration: 15-30 minutes/day Frequency: 1-2 times per week Special mayo needs: No Seatbelt use: always Do you feel safe at home: Yes Do you feel safe in your relationship?: Yes Female Reproductive History Menstrual Age of Menarche: 10 Duration of menses: 3-5 days History Past Pregnancies Del. Date GA/Weeks # Preg Succ Route Wgt Sex Labor Lgth Anesthesia Location Prov Complic 01/24/16 38 No Yes vaginal 4053.982 g [facility] Delivery Date: 01/24/16 Last Updated by: Gricelda Ryder MD (adrian)
--- NOTE | 2025-02-06 01:33 | DI.VRAD_ITS ---
PROCEDURE INFORMATION: Exam: CT Abdomen And Pelvis With Contrast Exam date and time: 02/06/2025 12:47 AM Age: 34 years old Clinical indication: Right lower quadrant (RLQ) abd pain; Prior surgery: hysterectomy January 08, 2025 TECHNIQUE: Imaging protocol: Computed tomography of the abdomen and pelvis with contrast. Contrast material: OMNIPAQUE 350; Contrast volume: 100 ml; Contrast route: INTRAVENOUS (IV); COMPARISON: CT ABDOMEN PELVIS W 05/22/2024 1:37 AM FINDINGS: Lungs: No acute infiltrate in either lung base. Liver: Normal. No mass. Gallbladder and biliary ducts: Normal. No calcified stones. No ductal dilation. Pancreas: Normal. No ductal dilation. Spleen: Normal. No splenomegaly. Adrenal glands: Normal. No mass. Kidneys and ureters: No hydronephrosis. No calcified renal or ureteral stones. No perinephric stranding or perinephric fluid. Stomach and bowel: Unremarkable. No obstruction. No mucosal thickening. Appendix: Normal appendix. Intraperitoneal space: No free air. No significant fluid collection. Vasculature: The abdominal aorta is normal in caliber without aneurysm or dissection. Lymph nodes: No enlarged lymph nodes. Urinary bladder: Unremarkable as visualized. Reproductive: Prior hysterectomy. Normal ovaries. Bones/joints: Unremarkable for patient age. Soft tissues: Small fat-containing umbilical hernia. IMPRESSION: 1. No acute intra-abdominal or pelvic process. 2. Normal appendix. Dictated and Authenticated by: Spencer Gottlieb MD. Orderin Brice Newell MD
[2025-02-06 01:40] LABS: Bilirubin Negative (Negative); Blood Small (Negative); Clarity Clear (Clear); Glucose Negative (Negative); Ketones Negative (Negative); Leukocyte Esterase Moderate (Negative); Nitrite Negative (Negative); Specific Gravity 1.025 (1.005-1.025); Urobilinogen 0.2 mg/dL (Up to 0.2); pH 5.5 (5-8)
[2025-02-06 01:43] LABS: Bacteria Few HPF (Negative); C & S Indicated? Yes; Casts Negative LPF (Negative); Crystals Few Calcium Oxalate HPF (Negative); Epithelial Cells Negative HPF (Negative); Mucus Negative (Negative)
[2025-02-06] MEDS: Ciprofloxacin 250 MG TAB PO (02:03)
[2025-02-06 02:10] VITALS: BP 110/70; PULSE 80; RESP 15; TEMP 36.8; O2SAT 99
== END 2025-02-06 02:12 | disposition home or self-care (01) ==
PROVIDERS: Emergency Provider Emergency Medicine Emergency Medical Services; PCP Nurse Practitioner Family
DX: N39.0 Urinary tract infection, site not specified (principal); Z87.891 Personal history of nicotine dependence
CPT/HCPCS: 80048; 96365; 96366; 99285; 74177; 81003; 81015; 85025; 87086; 99284; J0131; J3490

== ENCOUNTER 2025-02-15 10:10 | Outpatient (CLI) | payer OTHER, SELFPAY ==
[2025-02-15 11:24] LABS: Vitamin D 25 Total 24 ng/mL (30-100)
== END 2025-02-15 10:11 | disposition home or self-care (01) ==
LOC: LBO 10:12
PROVIDERS: PCP Nurse Practitioner Family; Visit Provider Nurse Practitioner Family
DX: E53.8 Deficiency of other specified B group vitamins (principal)
CPT/HCPCS: 36415; 82306

== ENCOUNTER 2025-07-19 15:47 | Outpatient (CLI) | payer OTHER, SELFPAY ==
[2025-07-19 17:24] LABS: ALT 146 U/L (14-59); AST 75 U/L (15-37); Albumin 3.8 g/dL (3.4-5.0); Alkaline Phosphatase 128 U/L (46-116); Anion Gap 7.5 mmol/L (3-11); BUN 17 mg/dL (7-18); Bilirubin, Total 0.3 mg/dL (0.2-1.0); CO2 31.5 mmol/L (21.0-32.0); Calcium 8.9 mg/dL (8.5-10.1); Chloride 103 mmol/L (98-107); Estimated GFR 54.65 (mL/min/1.73m2); Glucose 103 mg/dL (74-106); Potassium 3.9 mmol/L (3.5-5.1); Sodium 142 mmol/L (136-145); Total Protein 7.2 g/dL (6.4-8.2)
== END 2025-07-19 15:48 | disposition home or self-care (01) ==
LOC: LBO 15:47
PROVIDERS: PCP Nurse Practitioner Family; Visit Provider Nurse Practitioner Family
DX: F33.2 Major depressive disorder, recurrent severe without psychotic features (principal)
CPT/HCPCS: 36415; 80053